=== PATIENT | female | born 1975 | race Caucasian/White ===

== ENCOUNTER 2021-09-22 13:26 | Outpatient (CLI) | payer BC, SELFPAY ==
--- NOTE | 2021-09-22 14:00 | CRLHL7_ITS ---
For Patients: As a result of the Century Cures Act, medical imaging exams and procedure reports are released immediately into your electronic medical record. You may view this report before your referring provider. If you have questions, please contact your health care provider. BILATERAL SCREENING MAMMOGRAM WITH COMPUTER-AIDED DETECTION TECHNIQUE: CC and MLO views were obtained. These mammographic images have been obtained using full-field digital technique. These mammographic images were interpreted with the benefit of computer-aided detection. COMPARISON FILM: 07/25/18, 06/28/17, 06/28/16. FINDINGS: The breasts are heterogeneously dense, which may obscure small masses IMPRESSION: There is no radiographic evidence for malignancy. ASSESSMENT: BI-RADS Category 1: Negative RECOMMENDATION: Routine screening mammogram in 1 year. A lay language report of this examination will be provided to the patient. Chapincito Martinez M.D. Diagnostic Radiologist [email or web address] KARLIE/Dictated by: Chapincito Martinez MD @ 09/23/2021 8:14:00 AM (Electronically Signed)
[2021-09-22 19:08] LABS: TSH With Reflex to FT4* 0.558 uIU/mL (0.270-4.200)
== END 2021-09-22 13:27 | disposition home or self-care (01) ==
LOC: MAMMO 13:28
PROVIDERS: Visit Provider Obstetrics & Gynecology
DX: Z12.31 Encounter for screening mammogram for malignant neoplasm of breast (principal); R92.2 Inconclusive mammogram; N92.0 Excessive and frequent menstruation with regular cycle
CPT/HCPCS: 36415; 77067; 84443

== ENCOUNTER 2024-02-20 08:25 | Outpatient (CLI) | payer BC, SELFPAY | END 2024-02-20 08:26 | disposition home or self-care (01) | LOC: NFLDREF 02-25 03:52 | PROVIDERS: Visit Provider Obstetrics & Gynecology | DX: N92.0 Excessive and frequent menstruation with regular cycle (principal); Z13.220 Encounter for screening for lipoid disorders | CPT/HCPCS: 80061; 84146 ==

== ENCOUNTER 2024-03-13 11:21 | Outpatient (CLI) | payer BC, SELFPAY ==
--- NOTE | 2024-03-13 11:30 | CRLHL7_ITS ---
For Patients: As a result of the Century Cures Act, medical imaging exams and procedure reports are released immediately into your electronic medical record. You may view this report before your referring provider. If you have questions, please contact your health care provider. BILATERAL SCREENING MAMMOGRAM WITH COMPUTER-AIDED DETECTION AND TOMOSYNTHESIS TECHNIQUE: CC and MLO views were obtained. These mammographic images have been obtained using full-field digital technique. These mammographic images were interpreted with the benefit of computer-aided detection. Breast Tomosynthesis was used in this interpretation. COMPARISON FILM: 09/22/21, 07/25/18, 06/28/17. FINDINGS: The breasts are heterogeneously dense, which may obscure small masses. IMPRESSION: There is no radiographic evidence for malignancy. ASSESSMENT: BI-RADS Category 1: Negative RECOMMENDATION: Routine screening mammogram in 1 year. A lay language report of this examination will be provided to the patient. Chapincito Martinez M.D. Diagnostic Radiologist [email or web address] SP/Dictated by: Chapincito Martinez MD @ 03/14/2024 10:25:00 AM (Electronically Signed)
== END 2024-03-13 11:22 | disposition home or self-care (01) ==
LOC: MAMMO 11:22
PROVIDERS: Visit Provider Obstetrics & Gynecology
DX: Z12.31 Encounter for screening mammogram for malignant neoplasm of breast (principal); R92.333 Mammographic heterogeneous density, bilateral breasts
CPT/HCPCS: 77063; 77067

== ENCOUNTER 2024-11-04 10:05 | Outpatient (CLI) | payer BC, SELFPAY ==
--- NOTE | 2024-11-04 10:15 | CRLHL7_ITS ---
For Patients: As a result of the Century Cures Act, medical imaging exams and procedure reports are released immediately into your electronic medical record. You may view this report before your referring provider. If you have questions, please contact your health care provider. Indication: Groin lump Technique: Grayscale and color Doppler ultrasound of the right groin soft tissues performed. Comparison: None Findings: Subcutaneous lymph nodes are present which measure 1.5 x 0.8 x 0.9 cm and 2.0 x 0.4 x 0.7 cm. Normal central fatty mariano and normal internal vascularity. Impression: Normal right inguinal lymph nodes. Dictated by Chapincito Martinez MD @ 11/04/2024 10:51:51 AM (Electronically Signed)
== END 2024-11-04 10:06 | disposition home or self-care (01) ==
LOC: US 10:05
PROVIDERS: Visit Provider Obstetrics & Gynecology
DX: R19.09 Other intra-abdominal and pelvic swelling, mass and lump (principal)
CPT/HCPCS: 76857

== ENCOUNTER 2024-12-22 07:59 | Day surgery (SDC) | payer BC, SELFPAY ==
[2024-12-22] VITALS (16 sets, daily range): BP systolic 94–115; BP diastolic 59–81; PULSE 48–83; RESP 16; TEMP 36.1–37.3; O2SAT 95–99; BMI 27.0
[2024-12-22 08:17] LABS: Ur HCG Qualitative* Negative (Negative)
[2024-12-22] MEDS: LACTATED RINGERS 1000 ML 1,000 ML 100 ML IV ×2 (08:45→11:01)
[2024-12-22] MEDS: SODIUM CHLORIDE 0.9 % (FLUSH) 10 ML SYRINGE IVF (08:45)
--- NOTE | 2024-12-22 09:42 | P.GSOP_ITS ---
Operative Note Date of procedure: 12/22/24 Pre-op diagnosis: Right inguinal hernia Post-op diagnosis: Same Type of Procedure: Laparoscopic repair of right inguinal hernia with mesh Indications: The patient is a 49-year-old female who presented to clinic with a right groin bulge which had become progressively worse over the summer. She was found to have a hernia. After discussion of options, she elected to proceed with repair. Procedure Description: After discussing the risks and benefits of the procedure, the patient signed informed consent.? The operative site was marked and the patient was brought to the operating room and placed on the operating table in supine position.? Care w as taken to pad the patient's pressure points.?? The patient was then intubated by anesthesia.? Her arms were tucked at her sides.? The operative site was then prepped and draped in the usual sterile fashion.? A time-out was then performed. A curvilinear incision was made below the umbilicus. Dissection was carried down to subcutaneous tissue until the anterior rectus fascia was encountered. A s mall preperitoneal fat containing umbilical hernia was encountered. The pre peritoneal fat was excised. The fascia was then incised off the midline on the right. The rectus muscle fibers were then retracted exposing the posterior fascia. A port with a dissecting balloon was then introduced into the pre- preperitoneal space. This was inflated under direct vision. The balloon was deflated, removed, and a 10 mm working port was placed. The space was insufflated and a 10 mm 30-degree scope was then advanced into the space. Two 5 mm ports were placed in the midline under direct vision. Dissection began on the right side. Cameron's ligament and the pubic bone were exposed medially. Following this, dissection was carried out laterally. Preperitoneal fat had herniated through the internal ring. This was completely reduced. The peritoneum was similarly reduced. The round ligament was dissected out and clipped with 2 clips proximal and 2 clips distal and divided. Once this was done, the inferior and lateral dissection were completed to create a space for the mesh. There was no femoral hernia noted. A piece of large Bard 3DMax mesh for the appropriate side was placed into the abdomen. This was positioned with the marker pointed medially. A Tacker was used to attach the mesh medially at Cameron's ligament. Once this was completed the preperitoneal space desufflated under direct vision to ensure the mesh laid flat and the peritoneum and preperitoneal fat sat below and anterior to the mesh. 10 mL of 0.5% Marcaine were instilled into the preperitoneal space through a port. The ports were removed. The fascia from the infraumbilical port was closed with 0 Vicryl. The small fascial defect below the umbilicus which was less than 1 mm was closed with an 0 Vicryl stitch. The skin incisions were closed with absorbable subcuticular suture. Sterile dressings were then applied. The patient was then woken and transported to the recovery area in stable condition. ? The patient tolerated the procedure well. Findings: Direct fat containing right inguinal hernia Small preperitoneal fat containing umbilical hernia Implants: Bard 3DMax mesh Anesthesia: GETA Surgeon: Latha Harrington MD Estimated blood loss (mL): 5 Condition: stable Disposition: PACU
--- NOTE | 2024-12-22 09:42 | W.PM.H&PU ---
History & Physical Update History & Physical Update H&P Reviewed and patient assessed: No changes noted
[2024-12-22] MEDS: BUPIVACAINE 0.25% 30 ML INJECTION (10:20)
--- NOTE | 2024-12-22 10:43 | P.ANES_ITS ---
Anesthesia Charges Start Date/Time Anesthesia Start Date: 12/22/24 Anesthesia Start Time: 09:37 Stop Date/Time Anesthesia Stop Date: 12/22/24 Anesthesia Stop Time: 10:41 Coding CPT Codes CPT Codes: ANESTH REPAIR OF HERNIA - 21416 ([id number]) P2 - PATIENT W/MILD SYST DISEASE, QK - VICE PRESIDENT SAFETY 2-4 CNCRNT ANES PROC, QX - PHARMACEUTICAL SALESPERSON SVC W/ MD MED DIRECTION
--- NOTE | 2024-12-22 10:43 | W.ANESCHARGE ---
Anesthesia Charges Start Date/Time Anesthesia Start Date: 12/22/24 Anesthesia Start Time: 09:37 Stop Date/Time Anesthesia Stop Date: 12/22/24 Anesthesia Stop Time: 10:41 Coding CPT Codes CPT Codes: ANESTH REPAIR OF HERNIA - 55515 ([id number]) P2 - PATIENT W/MILD SYST DISEASE, QK - INBOUND SALES REPRESENTATIVE 2-4 CNCRNT ANES PROC, QX - EGG BREAKER SVC W/ MD MED DIRECTION
--- NOTE | 2024-12-22 12:22 | P.ANES_ITS ---
Anesthesia Charges Start Date/Time Anesthesia Start Date: 12/22/24 Anesthesia Start Time: 09:37 Stop Date/Time Anesthesia Stop Date: 12/22/24 Anesthesia Stop Time: 10:41 Coding CPT Codes CPT Codes: ANESTH SURG LOWER ABDOMEN - 45196 ([id number]) QK - QUANTITATIVE ASSOCIATE 2-4 CNCRNT ANES PROC, QX - ADON SVC W/ MD MED DIRECTION, P2 - PATIENT W/MILD SYST DISEASE
--- NOTE | 2024-12-22 12:22 | W.ANESCHARGE ---
Anesthesia Charges Start Date/Time Anesthesia Start Date: 12/22/24 Anesthesia Start Time: 09:37 Stop Date/Time Anesthesia Stop Date: 12/22/24 Anesthesia Stop Time: 10:41 Coding CPT Codes CPT Codes: ANESTH SURG LOWER ABDOMEN - 39905 ([id number]) QK - INCIDENT RESPONSE SPECIALIST 2-4 CNCRNT ANES PROC, QX - SENIOR TECHNICAL BUSINESS ANALYST SVC W/ MD MED DIRECTION, P2 - PATIENT W/MILD SYST DISEASE
== END 2024-12-22 14:01 | disposition home or self-care (01) ==
PROVIDERS: Anesthesiology; Visit Provider Surgery
PROC: (CPT 49650; principal; 2024-12-22 09:30)
DX: K40.90 Unilateral inguinal hernia, without obstruction or gangrene, not specified as recurrent (principal); K42.9 Umbilical hernia without obstruction or gangrene
CPT/HCPCS: 49650; 00830; 00840; 81025; C1781; J0665; J0690; J1100; J2250; J2405; J2704; J2710; J3010; J7120